=== PATIENT | female | born 1985 | race Caucasian/White ===

== ENCOUNTER → 2019-10-09 10:00 | Outpatient (CLI) | payer OTHER, SELFPAY ==
--- NOTE | ~2019-10-09 | US_ITS ---
EXAMINATION: US breast LT limited HISTORY: Cyclic pain in the upper inner quadrant of the left breast with associated intermittent jeremiah ar nipple discharge. TECHNIQUE: Limited left breast ultrasound is performed. FINDINGS: No suspicious cystic or solid mass is identified in the region of the patient's left breast pain. No dilated ducts or intraductal mass are seen. IMPRESSION: No specific sonographic correlate is identified for the left breast pain or nipple discharge. Further evaluation at this time should be based on clinical assessment. Continued follow-up physical examina tion is recommended. BI-RADS Category 1: Negative Reviewed, dictated and finalized at location A. TIONAL REHABILITATION ADMINISTRATOR IMPRESSION: No specific sonographic correlate is identified for the left breast pain or nip ple discharge. Further evaluation at this time should be based on clinical asse ssment. Continued follow-up physical examination is recommended. BI-RADS Category 1: Negative
== END ==
PROVIDERS: Visit Provider Nurse Practitioner
DX: N64.4 Mastodynia (principal)
CPT/HCPCS: 76642

== ENCOUNTER 2019-12-26 08:19 | Outpatient (CLI) | payer OTHER, SELFPAY ==
--- NOTE | ~2019-12-26 | US_ITS ---
EXAMINATION: US OB <=14 wk fetus w TV DATE: 12/26/2019 09:08 INDICATION: Dating of during first trimester TECHNIQUE: Real-time pelvic ultrasound utilizing both a transvaginal and transabdominal probe was pe rformed. The interpreting radiologist was not present for the study. COMPARISON: None. FINDINGS: The uterus measures 8.0 x 6.0 x 6.5 cm. There is an intrauterine gestational sac with double decidua sign and yolk sac but no measurable pole yet discernible. The mean sac diameter measures 6 mm, which correlates with an estimated gestational age of 5 weeks and 1 days. The right ovary measures 2.7 x 2.4 x 2.3 cm. The left ovary measures 3.0 x 1.4 x 1.4 cm. Vascular evy w identified at both ovaries on color Doppler. There is no free fluid in the pelvis. IMPRESSION: 1. Single uterine gestational sac with yolk sac but no discernible pole yet evident likely due to early stage of .. 2. Gestational age by ultrasound based upon mean sac diameter of 5 weeks 1 day(s) +/- 3 day(s) with ultrasound estimated date of delivery (GIULIANO) of 08/26/2020. Reviewed, dictated and finalized at location A. IMPRESSION: 1. Single uterine gestational sac with yolk sac but no discernible pole y et evident likely due to early stage of .. 2. Gestational age by ultrasound based upon mean sac diameter of 5 weeks 1 day (s) +/- 3 day(s) with ultrasound estimated date of delivery (GIULIANO) of 08/26/2020 .
== END 2019-12-26 08:20 | disposition home or self-care (01) ==
PROVIDERS: Visit Provider Obstetrics & Gynecology Gynecology
DX: Z36.89 Encounter for other specified antenatal screening (principal); Z3A.01 Less than 8 weeks gestation of pregnancy
CPT/HCPCS: 76801; 76817

== ENCOUNTER 2020-01-02 16:25 | Outpatient (CLI) | payer OTHER, SELFPAY ==
--- NOTE | ~2020-01-02 | US_ITS ---
EXAMINATION: US OB <=14 wk fetus w TV EXAM DATE: 01/02/2020 17:10 INDICATION: Check viability. . First trimester. TECHNIQUE: Pelvic obstetrical transabdominal sonogram was performed by a technologist. There are mu ltiple grayscale and Doppler images available for interpretation. Comparison is made to prior examina tion from 12/26/2019. FINDINGS: Uterus measures 8.6 x 5.3 x 7.2 cm. There is intrauterine gestation sac. pole with heart rate confirmed at 119 beats per minute. The 5 mm crown-rump length corresponds to estimated ge stational age by ultrasound of 6 weeks 2 days, estimated date of confinement 08/25/2020. Yolk sac is identified. There is no sonographic evidence of subchorionic hemorrhage. The ovaries are morphol ogically normal. IMPRESSION: Live intrauterine gestation, age by ultrasound 6 weeks 2 days. Reviewed, dictated and finalized at location A.
== END 2020-01-02 16:26 | disposition home or self-care (01) ==
PROVIDERS: Visit Provider Obstetrics & Gynecology Gynecology
DX: O36.80X0 Pregnancy with inconclusive fetal viability, not applicable or unspecified (principal); Z3A.01 Less than 8 weeks gestation of pregnancy
CPT/HCPCS: 76801; 76817

== ENCOUNTER 2020-12-20 23:03 | Emergency (ER) | payer OTHER, SELFPAY ==
--- NOTE | ~2020-12-20 | CT_ITS ---
EXAMINATION: CT abdomen pelvis wo con DATE: 12/21/2020 00:39 INDICATION: Generalized abdominal pain. Nausea and vomiting. TECHNIQUE: Computed tomography (CT) of the abdomen and pelvis was performed without intravenous contr ast. Automated exposure control and iterative reconstruction technique were employed. The dose-length product was 1275.13 mGy-cm. COMPARISON: None FINDINGS: Lung bases are clear. Heart size is normal. No pericardial or pleural effusion. Diffuse hepatic steat osis. Status post cholecystectomy. Spleen, pancreas, bilateral adrenal glands and kidneys are normal. Bladder, anteverted uterus and bilateral adnexa are unremarkable. No bowel obstruction or abnormal b owel wall thickening. There is however diarrhea with fluid distributed throughout the large and small bowel suggesting possible gastroenteritis. Normal appendix. No free intraperitoneal gas or fluid. No pathologically enlarged abdominal or pelvic lymphadenopathy. Postoperative changes to the abdominal wall at the umbilicus. IMPRESSION: 1. Nonspecific diarrhea with fluid throughout the nonobstructed large and small bowel. Correlate clin ically for gastroenteritis. 2. Diffuse hepatic steatosis. Reviewed, dictated and finalized at location A. IMPRESSION: 1. Nonspecific diarrhea with fluid throughout the nonobstructed large and small bowel. Correlate clinically for gastroenteritis. 2. Diffuse hepatic steatosis.
[2020-12-20 23:21] VITALS: BP 125/84; PULSE 97; RESP 18; TEMP 36; O2SAT 100
[2020-12-20] MEDS: ONDANSETRON INJ 4 MG/2 ML VIAL (23:41)
[2020-12-20] MEDS: SODIUM CHLORIDE 0.9% IV 1,000 ML 999 ML (23:41)
[2020-12-20 23:46] LABS: Glucose Point of Care 127 (65-105)
[2020-12-21 00:02] LABS: Basophils Absolute Auto 0.1 K/mm3 (0.0-0.1); Basophils Percent Auto 0.4 % (0.2-1.2); Eosinophils Absolute Auto 0.1 K/mm3 (0-0.3); Eosinophils Percent Auto 0.8 % (0-4.4); Hematocrit 42.3 % (37.0-47.0); Hemoglobin 14.2 g/dL (12.0-15.0); Immature Granulocyte Absolute 0.04 K/mm3 (0.00-0.031); Immature Granulocyte Percent A 0.3 % (0-0.5); Lymphocytes Absolute Auto 1.01 K/mm3 (0.9-3.2); Lymphocytes Percent Auto 7.6 % (18.3-44.2); Mean Corpuscular HGB Conc 33.6 g/dl (32-36); Mean Corpuscular Hemoglobin 26.3 pg (26-34); Mean Corpuscular Volume 78.5 fl (80-100); Monocytes Absolute Auto 0.6 K/mm3 (0.1-0.6); Monocytes Percent Auto 4.4 % (2.6-8.5); Neutrophils Absolute Auto 11.5 K/mm3 (1.3-6.7); Neutrophils Percent Auto 86.5 % (45.5-73.1); Platelet Count Result 342 k/mm3 (150-375); Red Blood Count 5.39 M/mm3 (4.2-5.4); Red Cell Distribution Width 14.1 % (11.5-14.5); White Blood Count 13.3 K/mm3 (4.5-10.0)
[2020-12-21 00:17] LABS: Alanine Aminotransferase 39 U/L (4-35); Alkaline Phosphatase 96 U/L (38-126); Anion Gap 12 mmol/L (8-16); Aspartate Amino Transferase 43 U/L (14-36); Bilirubin,Total 0.5 mg/dL (0.2-1.3); Blood Urea Nitrogen 16 mg/dL (7-17); Calcium 9.5 mg/dL (8.4-10.2); Carbon Dioxide 27 mmol/L (22-30); Chloride 100 mmol/L (98-107); Estimated CRCL calculation 106 ml/min; Estimated Glomerular Filt Rate > 60; Glucose 118 mg/dL (65-105); Lipase 131 U/L (23-300); Potassium 3.4 mmol/L (3.4-5.0); Sodium 139 mmol/L (137-145)
[2020-12-21] MEDS: MORPHINE SULFATE (*CRX) 4 MG/ML INJ IV PUSH (01:16)
[2020-12-21 01:18] VITALS: BP 138/89; PULSE 91; RESP 16; O2SAT 98
--- NOTE | 2020-12-21 01:24 | ED.GENADULT ---
HPI - General Adult General Chief complaint: Nausea/Vomiting/Diarrhea Stated complaint: n/v Time Seen by Provider: 12/20/20 23:44 History of Present Illness HPI narrative: Patient 35-year-old female who presents to emergency department with chief complaint of abdominal pain nausea and vomiting. Patient reports started having pain today started she also had severe nausea and has vomited multiple times. The patient reports she has pain in the epigastric region. The patient reports that it is not worsened with anything, and reports the pain is not improved by anything. Related Data Allergies Allergy/AdvReac Type Severity Reaction Status Date / Time hydrocodone AdvReac Unknown NAUSEA Verified 08/06/17 13:24 Review of Systems Review of Systems: Narrative: A 10 system review of systems was completed on the patient and is negative except for what is stated in the HPI. Nursing and ancillary documentation was reviewed. [facility] Social History Social History Smoking status: Never smoker Alcohol intake: never Exam Narrative: Exam Narrative: GENERAL: Well-appearing, well-nourished, and in no acute distress. HEAD: Normocephalic, atraumatic. EYES: PERRLA and EOMI. ENT: Nares clear, no rhinorrhea or epistaxis. Mucous membranes moist. NECK: Supple. CHEST: Clear to auscultation. No respiratory distress. HEART: Regular rate and rhythm. No murmur heard. Normal peripheral pulses. ABDOMEN: Soft, diffuse mild tenderness, nondistended, normal active bowel sounds. EXTREMITIES: Normal range of motion. No edema. SKIN: Warm, dry, no rash. NEURO: No focal deficits. Alert and oriented x3. PSYCH: Normal mood and affect. Course Vital Signs Vital signs: Vital Signs Temperature 36.0 C L 12/20/20 23:21 Pulse Rate 97 12/20/20 23:21 Respiratory Rate 18 12/20/20 23:21 Blood Pressure 125/84 12/20/20 23:21 Pulse Oximetry 100 12/20/20 23:21 Temperature 36.0 C L 12/20/20 23:21 Pulse Rate 91 12/21/20 01:18 Respiratory Rate 16 12/21/20 01:18 Blood Pressure 138/89 12/21/20 01:18 Pulse Oximetry 98 12/21/20 01:18 Medical Decision Making Vital Signs Vital Signs: Vital Signs Temperature 36.0 C L 12/20/20 23:21 Pulse Rate 97 12/20/20 23:21 Respiratory Rate 18 12/20/20 23:21 Blood Pressure 125/84 12/20/20 23:21 Pulse Oximetry 100 12/20/20 23:21 Temperature 36.0 C L 12/20/20 23:21 Pulse Rate 91 12/21/20 01:18 Respiratory Rate 16 12/21/20 01:18 Blood Pressure 138/89 12/21/20 01:18 Pulse Oximetry 98 12/21/20 01:18 Lab Data Result diagrams: 12/20/20 23:50 12/20/20 23:50 Labs: Lab Results 12/20/20 12/20/20 12/20/20 Range/Units 23:44 23:50 23:50 WBC 13.3 H (4.5-10.0) K/mm3 RBC 5.39 (4.2-5.4) M/mm3 Hgb 14.2 (12.0-15.0) g/dL Hct 42.3 (37.0-47.0) % MCV 78.5 L (80-100) fl MCH 26.3 (26-34) pg MCHC 33.6 (32-36) g/dl RDW 14.1 (11.5-14.5) % Plt Count 342 (150-375) k/mm3 MPV 9.0 (7.4-10.4) fl Immature Gran % (Auto) 0.3 (0-0.5) % Neut % (Auto) 86.5 H (45.5-73.1) % Lymph % (Auto) 7.6 L (18.3-44.2) % Ector % (Auto) 4.4 (2.6-8.5) % Eos % (Auto) 0.8 (0-4.4) % Baso % (Auto) 0.4 (0.2-1.2) % Lymph # (Auto) 1.01 (0.9-3.2) K/mm3 Ector # (Auto) 0.6 (0.1-0.6) K/mm3 Eos # (Auto) 0.1 (0-0.3) K/mm3 Baso # (Auto) 0.1 (0.0-0.1) K/mm3 Abs Immat Gran (auto) 0.04 H (0.00-0.031) K/mm3 Absolute Neuts (auto) 11.5 H (1.3-6.7) K/mm3 Absolute Nucleated RBC 0.0 (0.0-0.012) K/mm3 Nucleated RBC % 0.0 (0.0-0.2) % Sodium 139 (137-145) mmol/L Potassium 3.4 (3.4-5.0) mmol/L Chloride 100 (98-107) mmol/L Carbon Dioxide 27 (22-30) mmol/L Anion Gap 12 (8-16) mmol/L BUN 16 (7-17) mg/dL Creatinine 0.80 (0.7-1.0) mg/dL Estim Creat Clear Calc 106 ml/min Estimated GFR
[2020-12-21 01:28] LABS: Add Urine Microscopic? YES; Appearance Urine Cloudy (Clear); Bacteria Urine Trace /hpf; Bilirubin Urine Negative (Negative); Blood Urine Negative (Negative); Color Urine Amber (Yellow); Glucose Urine UA Negative (Negative); Ketones Urine Negative (Negative); Leukocyte Esterase Ur Trace LEU/UL (Negative); Mucus Urine Moderate /lpf; Nitrate Urine Negative (Negative); Protein Urine 1+ mg/dL (Negative); Specific Grav Ur 1.029 (1.001-1.035); Squamous Epithelial Cell Urine Many /hpf (Few)
[2020-12-21] MEDS: DICYCLOMINE HCL INJ 20 MG/2 ML VIAL IM (02:27)
[2020-12-21 02:37] VITALS: BP 122/76; PULSE 82; RESP 16; TEMP 36.8; O2SAT 98
== END 2020-12-21 02:38 | disposition home or self-care (01) ==
PROVIDERS: Emergency Provider Emergency Medicine; PCP Family Medicine
DX: K52.9 Noninfective gastroenteritis and colitis, unspecified (principal)
CPT/HCPCS: 36415; 74176; 80053; 81001; 81025; 82948; 83690; 85025; 87880; 96361; 96372; 96374; 99284; J0500; J2270; J2405; J7030

== ENCOUNTER 2021-11-25 10:03 | Emergency (ER) | payer OTHER, SELFPAY ==
[2021-11-25 10:16] VITALS: BP 148/97; PULSE 75; RESP 18; TEMP 37; O2SAT 100
--- NOTE | 2021-11-25 10:18 | ED.BACK ---
HPI - Back Pain/Injury General Chief Complaint: Back Pain/Injury Stated Complaint: radiating pain in lower back Time Seen by Provider: 11/25/21 10:19 Source: patient Mode of arrival: ambulatory Limitations: no limitations History of Present Illness HPI Narrative: Ms. Reid is a 36-year-old female patient presenting to the clinic today with complaints of low back pain. She feels that this may be a urinary tract infection. She is currently on amoxicillin for a sinus infection. She reports that she has low back pain that radiates out to the paraspinous muscles. She denies any urinary symptoms however last time she had low back pain she had a UTI. States last night when she took the amoxicillin she began having worsening of the back pain. She denies any fever chills. She denies any radiation into the abdomen. No history of kidney stones in the past. She denies as she has PCOS and is not currently sexually active. Prior to the beginning of her back pain she took her kids to [employer] and was carrying her 20 [address] whole way through. Rates pain a 6 out of 10 states that sharp and dull. Has not taken anything for pain this morning. Movement does worsen the pain at times. Related Data Home Medications Medication Instructions Recorded Confirmed Zoloft 11/25/21 amoxicillin-pot clavulanate tablet 11/25/21 prednisone 11/25/21 Allergies Allergy/AdvReac Type Severity Reaction Status Date / Time hydrocodone AdvReac Unknown NAUSEA Verified 08/06/17 13:24 Review of Systems Review of Systems: Pertinent positives per HPI. Patient denies any fever, chills, rash, headache, visual changes, dizziness, cough, runny nose, sore throat, shortness of breath, chest pain, palpitations, nausea, vomiting, diarrhea, constipation, abdominal pain, urinary symptoms PMFSH Social History Social History Smoking status: Never smoker Alcohol intake: never Comments At the time of my signature, I reviewed and agree with the nursing past medical, surgical, social, and family history. There is no relevant family history pertinent to the patient complaint. Exam Narrative: General: Well-developed, obese, in no apparent distress Cardio: Regular rate and rhythm, s1 and s2 normal, no murmur appreciated. Resp: Clear to auscultation bilaterally, no rhonchi, rales, wheezing or rubs. Abdomen: Soft, pliable, nontender to palpation over the abdomen, no organomegaly, bowel sounds present in all 4 quadrants. No suprapubic tenderness. Bilateral positive CVA tenderness right greater than left. Musculoskeletal: No deformity, tender to palpation over the mid low back and over the paraspinous muscles to the low back, grossly normal range of motion, straight leg test positive at approximately 45 degrees bilaterally, muscle strength strong and equal in BLE. patellar reflexes 3/4 bilaterally, negative foot drop, normal gait and station Course Course Emergency Course: Portions of this record may have been created with voice recognition software. Level of Care: Express Care Visit Vital Signs Vital signs: Vital Signs Temperature 37.0 C 11/25/21 10:16 Pulse Rate 75 11/25/21 10:16 Respiratory Rate 18 11/25/21 10:16 Blood Pressure 148/97 H 11/25/21 10:16 Pulse Oximetry 100 11/25/21 10:16 Temperature 37.0 C 11/25/21 10:16 Pulse Rate 75 11/25/21 10:16 Respiratory Rate 18 11/25/21 10:16 Blood Pressure 148/97 H 11/25/21 10:16 Pulse Oximetry 100 11/25/21 10:16 Vital signs reviewed MDM - Back Pain/Injury MDM Narrative Medical decision making narrative: At the time of assessment patient was resting comfortably on the exam table. She is having mid low back pain that radiates outward but does not radiate into the abdomen. She denies any radiation into her legs or in her groin. She is continent of stool and urine. Straight leg test was positive bi
== END 2021-11-25 10:47 | disposition home or self-care (01) ==
PROVIDERS: Emergency Provider Nurse Practitioner Family; PCP Family Medicine
DX: S39.012A Strain of muscle, fascia and tendon of lower back, initial encounter (principal); X58.XXXA Exposure to other specified factors, initial encounter; R31.29 Other microscopic hematuria
CPT/HCPCS: 81003; 87086; 99213; G0463

== ENCOUNTER 2022-09-04 09:25 | Outpatient (CLI) | payer OTHER, SELFPAY ==
--- NOTE | ~2022-09-04 | XR_ITS ---
EXAMINATION: XR chest 2V Exam Date/Time: 09/04/2022 9:35 CONTESTANT COORDINATOR HISTORY: subacute cough, left chest tightness, hx: asthma Comparison: 04/07/2017. RESULT: Lines, tubes, and devices: None. Lungs and pleura: Clear. Cardiomediastinal silhouette: Stable. Other: No acute osseous or upper abdominal finding. IMPRESSION: No acute cardiopulmonary process. Reviewed, dictated and finalized at location K. ESTANT COORDINATOR
== END 2022-09-04 09:26 | disposition home or self-care (01) ==
LOC: ANHIMG 09:30
PROVIDERS: PCP Family Medicine; Visit Provider Nurse Practitioner Family
DX: R05.2 Subacute cough (principal)
CPT/HCPCS: 71046

== ENCOUNTER 2023-04-28 16:03 | Emergency (ER) | payer OTHER, SELFPAY ==
--- NOTE | 2023-04-28 16:25 | PC.NURSE ---
Patient's spouse entered the ER and walked up to triage desk to ask RN where his was located. This RN informed the patient's spouse that the patient had just arrived not long ago and was waiting to be triage in the lobby. The patient's walked over the the patient and then very quickly came back to the triage desk to ask this RN when the patient would be roomed. This RN informed the patient's that she would triaged soon where she would be evaluated by the broadcast meteorologist, vitals obtained and (per protocol) labs drawn. The patient's asked when she would be seen by the doctor. This RN informed patient that I was unable to provide an ETA due to the nature of the ER but that some people had been waiting over two hours. This RN apologized for the wait times. The patient's became angry and stated so you're just going to let my baby ? . This RN again apologized for the wait and ensured him that his would be evaluated by the broadcast meteorologist momentarily. The patient's said should I just take her over to labor and delivery? . The patient's was informed that the [facility] would not evaluate the patient because she was only 13 weeks . The patient's became even angrier and stated well maybe we'll just go to [facility] . This RN informed the patient's that we would be happy to see the patient but that an time estimate could not be provided and that it was within their right to chose care at another facility . The broadcast meteorologist came to the desk at this point as the patient's had raised his voice. The broadcast meteorologist suggested that he speak with the discharge coordinator. Another nurse contacted the discharge coordinator to speak with the patient. The patient's stood at the triage desk and waited to speak with the charge nurse. After only minutes had passed he asked when is this charge nurse coming . This RN informed the patient's that he would come to speak with him but that he might be caring for another patient or speaking with another family member. At this point the patient walked towards the exit and stated let's just go to [facility] . The patient's then glared angrily at this RN before quickly running out of the ER to the parking lot. A moment later this RN witnessed the patient's spouse drive erratically [place] the [place] and stop to greens picker the patient before driving off. hobbing machine operator then up to the triage desk and updated on the situation.
== END 2023-04-28 16:59 | disposition left against medical advice (07) ==
PROVIDERS: PCP Family Medicine
DX: Z53.21 Procedure and treatment not carried out due to patient leaving prior to being seen by health care provider (principal)
CPT/HCPCS: 99199

== ENCOUNTER 2024-06-30 08:33 | Emergency (ER) | payer OTHER, SELFPAY ==
--- NOTE | ~2024-06-30 | XR_ITS ---
EXAMINATION: XR chest 2V DATE: 06/30/2024 09:16 INDICATION: Productive cough. TECHNIQUE: Frontal and lateral views of the chest were obtained. COMPARISON: Chest 2 views 09/04/2022, CT abdomen and pelvis 12/21/2020 FINDINGS: There is no pneumonia, pleural effusion, or pneumothorax. The heart size is normal. IMPRESSION: 1. No acute cardiopulmonary disease. Reviewed, dictated and finalized at location A.
[2024-06-30 08:40] VITALS: BP 98/75; PULSE 93; RESP 16; TEMP 37.1; O2SAT 100
[2024-06-30 08:58] LABS: EDSTREPNEGPOS1 Negative (Negative)
--- NOTE | 2024-06-30 08:58 | ED.URI ---
HPI - URI/Sore Throat General Chief Complaint: Upper Respiratory Infection Stated Complaint: Strep Symptoms Time Seen by Provider: 06/30/24 08:48 Source: patient, RN notes reviewed and old records reviewed Mode of arrival: ambulatory Limitations: no limitations History of Present Illness HPI Narrative: 38-year-old female to Express Care with complaint sore throat, hoarseness, productive cough for 1-2 days. Patient states that her children are currently being treated for strep throat. Patient has not attempted to treat symptoms at home. Patient states that she is currently breast feeding. Patient able to tolerate fluids by mouth. Patient denies difficulty swallowing, shortness of breath, pertinent medical history. Patient resting comfortably in exam room in no acute distress. Respirations even and nonlabored. Related Data Allergies Allergy/AdvReac Type Severity Reaction Status Date / Time hydrocodone AdvReac Unknown NAUSEA Verified 06/30/24 08:47 Review of Systems Review of Systems: All systems reviewed & are unremarkable except as noted in HPI and below Constitutional: Constitutional: Reports no additional constitutional complaints Eyes: Eyes: Reports no additional eye complaints ENT: Reports system reviewed and no additional complaints, except as documented Cardiovascular: Cardiovascular: Reports no additional cardiovascular complaints, Denies chest pain and Denies dyspnea Respiratory: Respiratory: Reports no additional respiratory complaints, Denies cough and Denies dyspnea Musculoskeletal: Musculoskeletal: Reports no additional musculoskeletal complaints Neurologic: Reports system reviewed and no additional complaints, except as documented Psychiatric: Psychiatric: Reports no additional psychiatric complaints PMFSH Social History Social History Smoking status: Never smoker Alcohol intake: never Comments At the time of my signature, I reviewed and agree with the nursing past medical, surgical, social, and family history. There is no relevant family history pertinent to the patient complaint. Exam Const: General: cooperative, healthy appearing, comfortable, no acute distress, alert and well nourished Nutritional Appearance: well nourished Orientation/consciousness: patient oriented x3 Limitations: no limitations HENMT: Head: normal to inspection Ears: external ears normal Face/Nose/Sinus: Normal external nose present, Normal nares present, normal facial exam, No erythema and No edema Face and sinus: normal facial exam, no erythema and no edema Mouth: Yes Normal oral and palatal mucosa present Eyes: General: appearance normal, both eyes and all related structures Neck: Neck: normal visual inspection, full ROM and no meningeal signs Lymphatic: no lymphadenopathy noted and no lymphedema noted Chest: Chest palpation & inspection: normal inspection of the chest Resp: Effort & Inspection: normal respiratory effort and able to speak in complete sentences Auscultation: clear to auscultation bilaterally Cardio: Jugular venous distension: no JVD Rate: regular rate Rhythm: regular rhythm Back/Spine/Pelvis: Cervical Spine: cervical ROM normal Skin: General skin exam: normal color, no rashes or lesions noted and turgor normal Neuro: General: patient oriented x3, gait normal, moves all extremities and no meningeal signs Speech: normal speech Gait exam (Neuro): Normal gait present Extrem: General: normal to inspection, full ROM and capillary refill normal Psych: Appearance: grossly normal and well kempt Course Course Emergency Course: Some parts of this dictation were generated by voice recognition software and may contain typographical and/or grammatical inaccuracies. Level of Care: Express Care Visit Vital Signs Vital signs: Vital Signs Temperature 37.1 C 06/30/24 08:40 Pulse Rate 93 06/30/24 08:40 Respiratory Rate 16 06/30/24 08:40 Blood Pressure 98/75 L 06/30/24 08:40 Pulse Oximetry 100 06/30/24 08:40 Temperature 37.1 C 06/30/24 08:40 Pulse Rate 93 06/30/24 08:40 Respiratory Rate 16 06/30/24 08:40 Blood Pressure 98/75 L 06/30/24 08:40 Pulse Oximetry 100 06/30/24 08:40 reviewed MDM - URI/Sore Throat MDM Narrative Medical decision making narrative: 38-year-old female to Express Care with complaint sore throat, hoarseness, productive cough for 1-2 days. Patient states that her children are currently being treated for strep throat. Patient has not attempted to treat symptoms at home. Patient states that she is currently breast feeding. Patient able to tolerate fluids by mouth. Patient denies difficulty swallowing, shortness of breath, pertinent medical history. Patient resting comfortably in exam room in no acute distress. Respirations even and nonlabored. Patient exam unremarkable. Patient tested negative for strep in clinic. Culture sent. Patient is sitting comfortably in exam room nontoxic in appearance. Patient appropriate for outpatient treatment and follow-up. Discharge instructions reviewed with patient, as well as provided in writing per nursing staff. The instructions also include specific and strict return/GO TO THE ER as well as f/u information. All questions have been answered, and the patient deny any further questions with discharge and discharge plan. Some parts of this dictation were generated by voice recognition software and may contain typographical and/or grammatical inaccuracies. Differential Diagnosis Differential diagnosis: Likely upper respiratory infection, croup, otitis media, sinusitis, viral infection, bronchitis, influenza and pharyngitis Lab Data Labs: Lab Results 06/30/24 Range/Units 08:56 POC Grp A Strep Screen Negative (Negative) Discharge Plan Discharge Clinical Impression: Upper respiratory infection Patient Disposition: Home, Self-Care Condition: Stable Instructions: Upper Respiratory Infection (ED) Additional Instructions: Your rapid strep swab was negative today at [facility]. A throat culture will be sent to the laboratory for further testing. If the test is positive, you will receive a phone call within 48 hours and an appropriate antibiotic will be initiated at that time. Your symptoms are likely due to a viral illness, which is not treated with antibiotics. Viral symptoms can be present for up to a few weeks. - Tylenol per package directions for fever or pain. -Antihistamine medication such as Zyrtec during the day can help improve symptoms. -Saline nasal spray can be used as needed - Be sure to drink plenty of water with these medications at least 8 ounces with every dose and it is important to drink 8 to 10 glasses of water per day. Water is a natural decongestant -Eat and drink things that are easy to swallow, like tea or soup, or popsicles. -Oral rinses such as: Salt water gargles and/or may use topical anesthetic (eg. Chloraseptic spray) or lozenges to relieve dryness or throat pain). -Frequent hand washing or hand saw cleaner is one of the best ways to prevent spread of infection. -Using a vaporizer or humidifier at night will also help thin secretions and help with coughing up phlegm. -Follow up with primary care provider in 2-3 days if condition is not improving; or seek ER visit if you have trouble breathing, cannot drink enough fluids, have muffled voice, difficulty opening your mouth, or severe swelling. Prescriptions: New albuterol sulfate 90 mcg/actuation aerosol [facility] breath activated 2 inh inhalation Q6H PRN (Reason: shortness of breath or wheezing) Qty: 1 0RF Follow-up/Referrals: UNKNOWN,DOCTOR [Primary Care Provider] -
== END 2024-06-30 09:42 | disposition home or self-care (01) ==
PROVIDERS: Emergency Provider Nurse Practitioner Family
DX: J06.9 Acute upper respiratory infection, unspecified (principal)
CPT/HCPCS: 71046; 87081; 87880; 99213; G0463